=== PATIENT | female | born 1945 | race Caucasian/White ===

== ENCOUNTER 2018-11-29 06:10 | Day surgery (SDC) | payer OTHER, MEDICARE ==
[~2018-11-29] VITALS: Ht 165.1 cm; Wt 77.1 kg
[2018-11-29] MEDS ORDERED: SEVOFLURANE 15 MIN GAS INH ONE (07:30)
[2018-11-29] MEDS ORDERED: DEXAMETHASONE SOD PHOSPHATE 4 MG/ML VIAL IVP ONE (07:30)
[2018-11-29] MEDS ORDERED: NEOSTIGMINE METHYLSULFATE 1 MG/ML, 10 ML VIAL IVP ONE (07:30)
[2018-11-29] MEDS ORDERED: LR 1,000 ML IV.SOLN IV ONE (07:30)
[2018-11-29] MEDS ORDERED: PROPOFOL 200MG/ 20ML VIAL (DIPRIVAN) IV ONE (07:30)
[2018-11-29] MEDS ORDERED: HYDROCORTISONE SOD SUCC 250 MG/2 ML IVP ONE (07:30)
[2018-11-29] MEDS ORDERED: PROCHLORPERAZINE EDISYLATE 10 MG/2 ML VIAL IM ONE (07:30)
[2018-11-29] MEDS ORDERED: ONDANSETRON HCL 4 MG/2 ML VIAL IVP ONE (07:30)
[2018-11-29] MEDS ORDERED: MUPIROCIN 2% TOPICAL OINTMENT 22 GM TP ONE (07:30)
[2018-11-29] MEDS ORDERED: OXYMETAZOLINE HCL 0.05% NASAL SPRAY NS ONE (07:30)
[2018-11-29] MEDS ORDERED: fentaNYL CITRATE/PF 100 MCG/2 ML AMP IVP ONE (07:30)
[2018-11-29] MEDS ORDERED: LIDOCAINE/EPI 1% 1:100000 20 ML VIAL INJ ONE (07:30)
[2018-11-29] MEDS ORDERED: WATER FOR IRRIGATION,STERILE 1,000 ML IRRIG.SOLN IR ONE (07:30)
[2018-11-29] MEDS ORDERED: NS IRRIG SOLN 1000 ML IR ONE (07:30)
[2018-11-29] MEDS ORDERED: ROCURONIUM BROMIDE 10 MG/ML (ZEMURON) IV ONE (07:30)
[2018-11-29] MEDS ORDERED: MIDAZOLAM HCL 5 MG/5 ML VIAL IVP ONE (07:30)
[2018-11-29] MEDS ORDERED: GLYCOPYRROLATE 0.2 MG/ML VIAL IJ ONE (07:30)
[2018-11-29] MEDS ORDERED: EPINEPHrine 1 MG/ML AMP IV ONE (07:30)
[2018-11-29] MEDS ORDERED: ONDANSETRON HCL 4 MG/2 ML VIAL IVP PRN (08:30)
[2018-11-29] MEDS ORDERED: METOCLOPRAMIDE HCL 10 MG/2 ML VIAL IVP PRN (08:30)
[2018-11-29] MEDS ORDERED: fentaNYL CITRATE/PF 100 MCG/2 ML AMP IVP PRN ×2 (08:30)
[2018-11-29] MEDS ORDERED: hydrALAZINE HCL 20 MG/ML VIAL IVP ONE (10:30)
[2018-11-29] MEDS: hydrALAZINE HCL 20 MG/ML VIAL ONE ×2 (10:30→10:40)
[2018-11-29 11:52] VITALS: BP_SYST 135
== END 2018-11-29 12:40 | disposition home or self-care (01) ==
LOC: SDS 06:10 → SMU 06:10 → SDS 12:40
PROVIDERS: ATTEND Otolaryngology
DX: J34.2 Deviated nasal septum (principal); J32.9 Chronic sinusitis, unspecified; J45.909 Unspecified asthma, uncomplicated; E03.9 Hypothyroidism, unspecified; F41.9 Anxiety disorder, unspecified; E78.00 Pure hypercholesterolemia, unspecified; Z79.899 Other long term (current) drug therapy; Z98.890 Other specified postprocedural states
CPT/HCPCS: 30140; 30520; 31255; 31295; 31298; 88305; 88311; J0171; J0360; J0780; J1100; J1720; J2250; J2405; J2704; J2710; J3010; J3490; J7120

== ENCOUNTER 2019-03-19 11:43 | Inpatient (IN) | payer OTHER, MEDICARE ==
[~2019-03-19] VITALS: Ht 165.1 cm; Wt 77.1 kg
[2019-03-19 11:53] VITALS: BP_SYST 124
[2019-03-19] MEDS ORDERED: NS 1000 ML IV.SOLN IV ONE (12:30)
[2019-03-19] MEDS ORDERED: ONDANSETRON HCL 4 MG/2 ML VIAL IVP ONE (12:30)
[2019-03-19] MEDS ORDERED: KETOROLAC TROMETHAMINE 30 MG VIAL IVP ONE (12:30)
[2019-03-19] MEDS ORDERED: MONT10TA25 PO (12:33)
[2019-03-19] MEDS ORDERED: LOSA25TA18 PO (12:33)
[2019-03-19] MEDS ORDERED: SERT50TA12 PO (12:33)
[2019-03-19] MEDS ORDERED: LOVA40TA75 PO (12:33)
[2019-03-19] MEDS ORDERED: SYN50 PO (12:33)
[2019-03-19] MEDS ORDERED: BUDE6HFA INH (12:33)
[2019-03-19] MEDS ORDERED: FLO44 INH (12:33)
[2019-03-19] MEDS ORDERED: TOLT4CAP PO (12:33)
[2019-03-19 13:17] LABS: HEMATOCRIT 39.1 % (36-48); HEMOGLOBIN 13.7 g/dL (12.0-16.0); MEAN CORPUSCULAR HEMOGLOBIN 32 pg (27-31); MEAN CORPUSCULAR HGB CONC 35 % (32-36); MEAN CORPUSCULAR VOLUME 92 fL (79.0-98.0); PLATELET COUNT (AUTO) 299 K/uL (130-430); RED BLOOD CELL COUNT(AUTO) 4.25 MIL/uL (4.2-6.2); RED CELL DISTRIBUTION WIDTH 12.9 % (9.0-15.0)
[2019-03-19 13:28] LABS: ANION GAP 9 (5-15); CALCIUM 8.9 mg/dL (8.4-11.0); CHLORIDE 93 mmol/L (98-107); CREATININE 1.48 mg/dL (0.55-1.30); GLUCOSE 139 mg/dL (70-99); POTASSIUM 3.8 mmol/L (3.5-5.1); SODIUM SERUM 129 mmol/L (136-145); UREA NITROGEN, BLOOD 28 mg/dL (8-21); WHITE BLOOD COUNT (AUTO) 31.3 K/uL (4.8-10.8)
[2019-03-19 13:31] LABS: INR 1.1 (0.8-1.2); PROTHROMBIN TIME 11.2 SECS (9.5-12.5)
[2019-03-19 13:34] LABS: ALANINE AMINOTRANSFERASE 22 U/L (12-78); ASPARTATE AMINOTRANSFERASE 35 U/L (10-37); TOTAL BILIRUBIN 0.8 mg/dL (0.0-1.0)
[2019-03-19 13:51] LABS: ATYPICAL LYMPHOCYTES % 2 % (0-0); BAND % (MANUAL) 25 % (0-6); BASOPHILS % (MANUAL) 0 % (0-2); EOSINOPHILS % (MANUAL) 0 % (0-7); LYMPHOCYTES % (MANUAL) 4 % (20-46); MONOCYTES % (MANUAL) 9 % (0-11)
[2019-03-19 15:26] VITALS: BP_SYST 116
[2019-03-19] MEDS: D5/0.45 NS 1,000 ML IV SCH (15:57)
[2019-03-19] MEDS ORDERED: ACETAMINOPHEN 325 MG TABLET PO PRN (17:00)
[2019-03-19] MEDS ORDERED: HYDROcodone/ACETAMIN 10-325 MG TAB PO PRN (17:00)
[2019-03-19] MEDS ORDERED: LOVASTATIN 20 MG TABLET PO SCH (18:00)
[2019-03-19] MEDS: ATORVASTATIN 10 MG TABLET PO SCH (18:38)
[2019-03-19] MEDS: MONTELUKAST 10 MG TABLET PO SCH (18:38)
[2019-03-19 18:42] VITALS: BP_SYST 116
[2019-03-19 19:00] VITALS: BP_SYST 116
[2019-03-19] MEDS: ALBUTEROL SULFATE 0.083% 2.5 MG/3 ML VIAL.NEB INH SCH (19:25)
[2019-03-19] MEDS: BUDESONIDE 0.5 MG/2 ML AMPUL.NEB INH SCH (19:45)
[2019-03-19 20:00] VITALS: BP_SYST 116
[2019-03-19] MEDS: VANCOMYCIN HCL Non-Formulary 125 MG CAPSULE PO SCH (21:00)
[2019-03-19] MEDS ORDERED: SACCHAROMYCES BOULARDII 250 MG CAPSULE (FLORASTOR) PO SCH (21:00)
[2019-03-19] MEDS ORDERED: BUDESONIDE/FORMOTEROL 160-4.5 mCg, 6 GM INHALER INH SCH (21:00)
[2019-03-19] MEDS: LACTOBACILLUS RHAMNOSUS GG 1 CAP CAPSULE PO SCH (22:01)
[2019-03-19] MEDS: OXYBUTYNIN CHLORIDE 5 MG TABLET PO SCH (22:01)
[2019-03-19] MEDS: metroNIDAZOLE 500 MG TABLET PO SCH (22:01)
[2019-03-19] MEDS: LORazepam 2 MG/ML VIAL IVP PRN (22:10)
[2019-03-19 23:11] LABS: BILIRUBIN,URINE 2+ (NEGATIVE); BLOOD, URINE NEGATIVE (NEGATIVE); CLARITY/URINE CLEAR (CLEAR); COLOR,URINE YELLOW (YELLOW); GLUCOSE,URINE NEGATIVE (NEGATIVE); KETONES,URINE TRACE (NEGATIVE); LEUKOCYTE ESTERASE ,URINE NEGATIVE (NEGATIVE); NITRITE, URINE POSITIVE (NEGATIVE); PH,URINE 5.5 (5.0-8.0); PROTEIN URINE TRACE (NEGATIVE)
[2019-03-19 23:16] LABS: BACTERIA,URINE MODERATE /HPF (None Seen); HYALINE CASTS, URINE 0-10 /LPF (None Seen); RBC,URINE 0-3 /HPF (0-3); WBC,URINE 0-3 /HPF (0-3)
[2019-03-20] MEDS: D5/0.45 NS 1,000 ML IV SCH ×3 (00:15→18:19)
[2019-03-20] MEDS: ALBUTEROL SULFATE 0.083% 2.5 MG/3 ML VIAL.NEB INH SCH ×3 (00:48→20:30)
[2019-03-20 05:05] VITALS: BP_SYST 124
[2019-03-20] MEDS: metroNIDAZOLE 500 MG TABLET PO SCH (05:24)
[2019-03-20 06:46] LABS: HEMATOCRIT 38.1 % (36-48); HEMOGLOBIN 13.1 g/dL (12.0-16.0); MEAN CORPUSCULAR HEMOGLOBIN 32 pg (27-31); MEAN CORPUSCULAR HGB CONC 34 % (32-36); MEAN CORPUSCULAR VOLUME 93 fL (79.0-98.0); PLATELET COUNT (AUTO) 314 K/uL (130-430); RED CELL DISTRIBUTION WIDTH 13.4 % (9.0-15.0); WHITE BLOOD COUNT (AUTO) 22.8 K/uL (4.8-10.8)
[2019-03-20 06:49] LABS: ALANINE AMINOTRANSFERASE 26 U/L (12-78); ALBUMIN 1.7 g/dL (3.4-4.8); ANION GAP 4 (5-15); ASPARTATE AMINOTRANSFERASE 30 U/L (10-37); CHLORIDE 92 mmol/L (98-107); CREATININE 1.44 mg/dL (0.55-1.30); GLUCOSE 105 mg/dL (70-99); PHOSPHORUS 3.8 mg/dL (2.7-4.5); POTASSIUM 3.5 mmol/L (3.5-5.1); SODIUM SERUM 126 mmol/L (136-145); TOTAL BILIRUBIN 0.4 mg/dL (0.0-1.0); UREA NITROGEN, BLOOD 34 mg/dL (8-21)
[2019-03-20 07:14] LABS: C-REACTIVE PROTEIN QUANT 22.1 mg/dL (0-0.5)
[2019-03-20 07:19] LABS: CALCIUM 8.1 mg/dL (8.4-11.0)
[2019-03-20 08:00] VITALS: BP_SYST 124
[2019-03-20 08:22] LABS: ERYTHROCYTE SEDIMENTATION RATE 58 MM/HR (0-20)
[2019-03-20] MEDS: OXYBUTYNIN CHLORIDE 5 MG TABLET PO SCH ×3 (08:56→22:07)
[2019-03-20] MEDS: LACTOBACILLUS RHAMNOSUS GG 1 CAP CAPSULE PO SCH ×2 (08:56→22:06)
[2019-03-20] MEDS: SERTRALINE HCL 50 MG TABLET PO SCH (08:56)
[2019-03-20] MEDS: LEVOTHYROXINE SODIUM 0.05 MG TABLET PO SCH (08:56)
[2019-03-20] MEDS: LOSARTAN POTASSIUM 25 MG TABLET PO SCH (08:57)
[2019-03-20] MEDS ORDERED: VANCOMYCIN HCL ORAL SOLUTION 250 MG/5 ML, 80 ML PO SCH (08:58)
[2019-03-20] MEDS: FLOVENT INH SCH (09:00)
[2019-03-20] MEDS ORDERED: FLUTICASONE 44 mcg/ACTUATION MDI AER.W.ADAP INH SCH (09:00)
[2019-03-20] MEDS ORDERED: TOLTERODINE TARTRATE ER 2 MG CAP.ER.24H PO SCH (09:00)
[2019-03-20] MEDS: BUDESONIDE 0.5 MG/2 ML AMPUL.NEB INH SCH ×2 (09:51→20:31)
[2019-03-20 09:57] LABS: BAND % (MANUAL) 14 % (0-6); BASOPHILS % (MANUAL) 0 % (0-2); EOSINOPHILS % (MANUAL) 2 % (0-7); LYMPHOCYTES % (MANUAL) 3 % (20-46); METAMYELOCYTES % 2 % (0-0); MONOCYTES % (MANUAL) 8 % (0-11)
[2019-03-20] MEDS: VANCOMYCIN HCL ORAL SOLUTION 250 MG/5 ML, 80 ML PO SCH ×2 (11:50→15:16)
[2019-03-20 12:17] VITALS: BP_SYST 121
[2019-03-20] MEDS: metroNIDAZOLE 500 mg/NS 100 ML IV SCH ×2 (15:16→22:06)
[2019-03-20 16:57] VITALS: BP_SYST 119
[2019-03-20] MEDS: ATORVASTATIN 10 MG TABLET PO SCH (18:16)
[2019-03-20] MEDS: MONTELUKAST 10 MG TABLET PO SCH (18:16)
[2019-03-20] MEDS: VANCOMYCIN HCL 250 MG CAPSULE PO SCH ×2 (18:16→22:07)
[2019-03-21 00:27] VITALS: BP_SYST 129
[2019-03-21] MEDS: ALBUTEROL SULFATE 0.083% 2.5 MG/3 ML VIAL.NEB INH SCH ×4 (01:00→19:00)
[2019-03-21 06:12] LABS: BASOPHILS # (AUTO) 0.1 K/uL (0.0-0.2); BASOPHILS % (AUTO) 0.5 % (0.0-2.0); EOSINOPHILS # (AUTO) 0.2 K/uL (0.0-0.4); EOSINOPHILS % (AUTO) 1.6 % (0.0-4.0); HEMOGLOBIN 11.9 g/dL (12.0-16.0); LYMPHOCYTES # (AUTO) 0.8 K/uL (1.0-5.5); LYMPHOCYTES % (AUTO) 6.6 % (20.5-51.5); MEAN CORPUSCULAR HEMOGLOBIN 33 pg (27-31); MEAN CORPUSCULAR HGB CONC 35 % (32-36); MEAN CORPUSCULAR VOLUME 94 fL (79.0-98.0); NEUTROPHILS # (AUTO) 10.4 K/uL (1.8-7.7); NEUTROPHILS % (AUTO) 83.3 % (40.0-70.0); PLATELET COUNT (AUTO) 297 K/uL (130-430); RED BLOOD CELL COUNT(AUTO) 3.62 MIL/uL (4.2-6.2); RED CELL DISTRIBUTION WIDTH 13.3 % (9.0-15.0); WHITE BLOOD COUNT (AUTO) 12.5 K/uL (4.8-10.8)
[2019-03-21] MEDS: metroNIDAZOLE 500 mg/NS 100 ML IV SCH ×3 (06:49→21:11)
[2019-03-21] MEDS: LEVOTHYROXINE SODIUM 0.05 MG TABLET PO SCH (06:50)
[2019-03-21] MEDS: BUDESONIDE 0.5 MG/2 ML AMPUL.NEB INH SCH ×2 (07:17→19:00)
[2019-03-21 07:38] LABS: ALANINE AMINOTRANSFERASE 22 U/L (12-78); ALBUMIN 1.6 g/dL (3.4-4.8); ANION GAP 3 (5-15); ASPARTATE AMINOTRANSFERASE 28 U/L (10-37); CALCIUM 7.5 mg/dL (8.4-11.0); CHLORIDE 98 mmol/L (98-107); CREATININE 1.08 mg/dL (0.55-1.30); GLUCOSE 113 mg/dL (70-99); PHOSPHORUS 3.4 mg/dL (2.7-4.5); POTASSIUM 3.9 mmol/L (3.5-5.1); SODIUM SERUM 131 mmol/L (136-145); TOTAL BILIRUBIN 0.4 mg/dL (0.0-1.0); UREA NITROGEN, BLOOD 32 mg/dL (8-21)
[2019-03-21 07:54] LABS: ERYTHROCYTE SEDIMENTATION RATE 39 MM/HR (0-20)
[2019-03-21 08:00] VITALS: BP_SYST 132
[2019-03-21 08:53] LABS: C-REACTIVE PROTEIN QUANT 11.6 mg/dL (0-0.5)
[2019-03-21] MEDS: FLOVENT INH SCH (09:00)
[2019-03-21] MEDS: OXYBUTYNIN CHLORIDE 5 MG TABLET PO SCH ×3 (10:03→21:11)
[2019-03-21] MEDS: VANCOMYCIN HCL 250 MG CAPSULE PO SCH ×4 (10:03→21:11)
[2019-03-21] MEDS: LACTOBACILLUS RHAMNOSUS GG 1 CAP CAPSULE PO SCH ×2 (10:03→21:11)
[2019-03-21] MEDS: LOSARTAN POTASSIUM 25 MG TABLET PO SCH (10:04)
[2019-03-21] MEDS: SERTRALINE HCL 50 MG TABLET PO SCH (10:04)
[2019-03-21] MEDS: D5/0.45 NS 1,000 ML IV SCH ×2 (11:32→21:16)
[2019-03-21 12:15] VITALS: BP_SYST 111
[2019-03-21 16:35] VITALS: BP_SYST 119
[2019-03-21] MEDS: MONTELUKAST 10 MG TABLET PO SCH (17:16)
[2019-03-21] MEDS: ATORVASTATIN 10 MG TABLET PO SCH (17:16)
[2019-03-21 20:00] VITALS: BP_SYST 118
[2019-03-22 00:30] VITALS: BP_SYST 111
[2019-03-22] MEDS: ALBUTEROL SULFATE 0.083% 2.5 MG/3 ML VIAL.NEB INH SCH ×3 (01:00→13:51)
[2019-03-22] MEDS: D5/0.45 NS 1,000 ML IV SCH ×3 (02:15→21:46)
[2019-03-22 06:12] LABS: BASOPHILS % (AUTO) 0.5 % (0.0-2.0); EOSINOPHILS # (AUTO) 0.2 K/uL (0.0-0.4); EOSINOPHILS % (AUTO) 1.9 % (0.0-4.0); LYMPHOCYTES # (AUTO) 0.9 K/uL (1.0-5.5); LYMPHOCYTES % (AUTO) 10.5 % (20.5-51.5); MEAN CORPUSCULAR HEMOGLOBIN 32 pg (27-31); MEAN CORPUSCULAR HGB CONC 34 % (32-36); MEAN CORPUSCULAR VOLUME 94 fL (79.0-98.0); MONOCYTES # (AUTO) 1.2 K/uL (0.0-1.0); MONOCYTES % (AUTO) 14.2 % (1.7-9.3); NEUTROPHILS # (AUTO) 5.9 K/uL (1.8-7.7); NEUTROPHILS % (AUTO) 72.9 % (40.0-70.0); PLATELET COUNT (AUTO) 278 K/uL (130-430); RED BLOOD CELL COUNT(AUTO) 3.71 MIL/uL (4.2-6.2); RED CELL DISTRIBUTION WIDTH 13.1 % (9.0-15.0)
[2019-03-22 06:13] LABS: ANION GAP 3 (5-15); C-REACTIVE PROTEIN QUANT 5.6 mg/dL (0-0.5); CHLORIDE 101 mmol/L (98-107); CREATININE 0.84 mg/dL (0.55-1.30); GLUCOSE 104 mg/dL (70-99); POTASSIUM 3.4 mmol/L (3.5-5.1); SODIUM SERUM 132 mmol/L (136-145); UREA NITROGEN, BLOOD 14 mg/dL (8-21)
[2019-03-22] MEDS: metroNIDAZOLE 500 mg/NS 100 ML IV SCH ×3 (06:25→21:45)
[2019-03-22] MEDS: LEVOTHYROXINE SODIUM 0.05 MG TABLET PO SCH (06:25)
[2019-03-22 06:36] LABS: CALCIUM 7.3 mg/dL (8.4-11.0)
[2019-03-22 07:15] LABS: WHITE BLOOD COUNT (AUTO) 8.1 K/uL (4.8-10.8)
[2019-03-22] MEDS: BUDESONIDE 0.5 MG/2 ML AMPUL.NEB INH SCH (07:50)
[2019-03-22 08:28] LABS: ERYTHROCYTE SEDIMENTATION RATE 26 MM/HR (0-20)
[2019-03-22] MEDS: FLOVENT INH SCH (09:00)
[2019-03-22] MEDS: VANCOMYCIN HCL 250 MG CAPSULE PO SCH ×4 (09:10→21:45)
[2019-03-22] MEDS: SERTRALINE HCL 50 MG TABLET PO SCH (09:10)
[2019-03-22] MEDS: LACTOBACILLUS RHAMNOSUS GG 1 CAP CAPSULE PO SCH ×2 (09:10→21:45)
[2019-03-22] MEDS: OXYBUTYNIN CHLORIDE 5 MG TABLET PO SCH ×3 (09:10→21:45)
[2019-03-22] MEDS: CHOLESTYRAMINE/SUCROSE 4 GM/PACKET PO SCH ×2 (09:11→21:45)
[2019-03-22 09:20] VITALS: BP_SYST 155
[2019-03-22] MEDS: LOSARTAN POTASSIUM 25 MG TABLET PO SCH (09:20)
[2019-03-22] MEDS ORDERED: POTASSIUM CHLORIDE 20 MEQ TAB.PRT.SR PO ONE (09:45)
[2019-03-22 12:28] VITALS: BP_SYST 144
[2019-03-22 14:32] VITALS: BP_SYST 144
[2019-03-22 16:24] VITALS: BP_SYST 126
[2019-03-22] MEDS: ATORVASTATIN 10 MG TABLET PO SCH (17:52)
[2019-03-22] MEDS: MONTELUKAST 10 MG TABLET PO SCH (17:52)
[2019-03-22 20:51] VITALS: BP_SYST 123
[2019-03-23 01:23] VITALS: BP_SYST 141
[2019-03-23] MEDS: metroNIDAZOLE 500 mg/NS 100 ML IV SCH ×3 (06:26→22:15)
[2019-03-23] MEDS: LEVOTHYROXINE SODIUM 0.05 MG TABLET PO SCH (06:26)
[2019-03-23 06:50] LABS: ANION GAP 7 (5-15); CHLORIDE 103 mmol/L (98-107); CREATININE 0.67 mg/dL (0.55-1.30); GLUCOSE 99 mg/dL (70-99); POTASSIUM 3.5 mmol/L (3.5-5.1); SODIUM SERUM 134 mmol/L (136-145); UREA NITROGEN, BLOOD 5 mg/dL (8-21)
[2019-03-23 07:22] LABS: BASOPHILS % (AUTO) 0.5 % (0.0-2.0); EOSINOPHILS # (AUTO) 0.2 K/uL (0.0-0.4); EOSINOPHILS % (AUTO) 1.7 % (0.0-4.0); HEMATOCRIT 37.6 % (36-48); HEMOGLOBIN 13.1 g/dL (12.0-16.0); LYMPHOCYTES # (AUTO) 1.1 K/uL (1.0-5.5); LYMPHOCYTES % (AUTO) 12.1 % (20.5-51.5); MEAN CORPUSCULAR HEMOGLOBIN 33 pg (27-31); MEAN CORPUSCULAR HGB CONC 35 % (32-36); MEAN CORPUSCULAR VOLUME 94 fL (79.0-98.0); MONOCYTES # (AUTO) 1.2 K/uL (0.0-1.0); MONOCYTES % (AUTO) 13.2 % (1.7-9.3); NEUTROPHILS # (AUTO) 6.6 K/uL (1.8-7.7); NEUTROPHILS % (AUTO) 72.5 % (40.0-70.0); PLATELET COUNT (AUTO) 295 K/uL (130-430); RED BLOOD CELL COUNT(AUTO) 4.02 MIL/uL (4.2-6.2); RED CELL DISTRIBUTION WIDTH 13.2 % (9.0-15.0); WHITE BLOOD COUNT (AUTO) 9.1 K/uL (4.8-10.8)
[2019-03-23] MEDS: BUDESONIDE 0.5 MG/2 ML AMPUL.NEB INH SCH ×2 (07:25→19:00)
[2019-03-23] MEDS: ALBUTEROL SULFATE 0.083% 2.5 MG/3 ML VIAL.NEB INH SCH ×3 (07:25→19:52)
[2019-03-23 07:26] LABS: CALCIUM 7.7 mg/dL (8.4-11.0)
[2019-03-23 07:52] VITALS: BP_SYST 147
[2019-03-23] MEDS: CHOLESTYRAMINE/SUCROSE 4 GM/PACKET PO SCH ×2 (08:38→22:15)
[2019-03-23] MEDS: SERTRALINE HCL 50 MG TABLET PO SCH (08:39)
[2019-03-23] MEDS: LOSARTAN POTASSIUM 25 MG TABLET PO SCH (08:39)
[2019-03-23] MEDS: LACTOBACILLUS RHAMNOSUS GG 1 CAP CAPSULE PO SCH ×2 (08:39→22:15)
[2019-03-23] MEDS: OXYBUTYNIN CHLORIDE 5 MG TABLET PO SCH ×3 (08:39→22:15)
[2019-03-23] MEDS: VANCOMYCIN HCL 250 MG CAPSULE PO SCH ×4 (08:39→22:15)
[2019-03-23] MEDS: FLOVENT INH SCH (08:40)
[2019-03-23] MEDS: D5/0.45 NS 1,000 ML IV SCH ×3 (08:41→20:20)
[2019-03-23 09:45] LABS: ERYTHROCYTE SEDIMENTATION RATE 22 MM/HR (0-20)
[2019-03-23 12:00] VITALS: BP_SYST 124
[2019-03-23 16:42] VITALS: BP_SYST 142
[2019-03-23] MEDS: ATORVASTATIN 10 MG TABLET PO SCH (17:31)
[2019-03-23] MEDS: MONTELUKAST 10 MG TABLET PO SCH (17:31)
[2019-03-23 20:00] VITALS: BP_SYST 145
[2019-03-23] MEDS: ONDANSETRON HCL 4 MG/2 ML VIAL IVP PRN (20:12)
[2019-03-23] MEDS ORDERED: PANTOPRAZOLE SODIUM 40 MG/VIAL (PROTONIX) IVP ONE (21:58)
[2019-03-23] MEDS: LORazepam 2 MG/ML VIAL IVP PRN (22:21)
[2019-03-24 00:34] VITALS: BP_SYST 127
[2019-03-24] MEDS: ALBUTEROL SULFATE 0.083% 2.5 MG/3 ML VIAL.NEB INH SCH ×4 (01:00→19:00)
[2019-03-24] MEDS: LEVOTHYROXINE SODIUM 0.05 MG TABLET PO SCH (06:18)
[2019-03-24] MEDS: metroNIDAZOLE 500 mg/NS 100 ML IV SCH ×3 (06:19→22:28)
[2019-03-24] MEDS: BUDESONIDE 0.5 MG/2 ML AMPUL.NEB INH SCH ×2 (07:24→19:00)
[2019-03-24 07:29] LABS: BASOPHILS # (AUTO) 0.1 K/uL (0.0-0.2); BASOPHILS % (AUTO) 0.9 % (0.0-2.0); EOSINOPHILS # (AUTO) 0.3 K/uL (0.0-0.4); EOSINOPHILS % (AUTO) 3.1 % (0.0-4.0); HEMATOCRIT 38.3 % (36-48); HEMOGLOBIN 13.4 g/dL (12.0-16.0); LYMPHOCYTES # (AUTO) 1.2 K/uL (1.0-5.5); LYMPHOCYTES % (AUTO) 12.4 % (20.5-51.5); MEAN CORPUSCULAR HEMOGLOBIN 32 pg (27-31); MEAN CORPUSCULAR HGB CONC 35 % (32-36); MEAN CORPUSCULAR VOLUME 93 fL (79.0-98.0); MONOCYTES # (AUTO) 1.3 K/uL (0.0-1.0); MONOCYTES % (AUTO) 13.8 % (1.7-9.3); NEUTROPHILS # (AUTO) 6.8 K/uL (1.8-7.7); NEUTROPHILS % (AUTO) 69.8 % (40.0-70.0); PLATELET COUNT (AUTO) 291 K/uL (130-430); RED BLOOD CELL COUNT(AUTO) 4.13 MIL/uL (4.2-6.2); RED CELL DISTRIBUTION WIDTH 13.2 % (9.0-15.0); WHITE BLOOD COUNT (AUTO) 9.8 K/uL (4.8-10.8)
[2019-03-24 08:08] LABS: ALANINE AMINOTRANSFERASE 38 U/L (12-78); ALBUMIN 1.5 g/dL (3.4-4.8); ANION GAP 3 (5-15); ASPARTATE AMINOTRANSFERASE 54 U/L (10-37); C-REACTIVE PROTEIN QUANT 2.7 mg/dL (0-0.5); CHLORIDE 102 mmol/L (98-107); CREATININE 0.66 mg/dL (0.55-1.30); GLUCOSE 103 mg/dL (70-99); POTASSIUM 3.4 mmol/L (3.5-5.1); SODIUM SERUM 131 mmol/L (136-145); TOTAL BILIRUBIN 0.3 mg/dL (0.0-1.0); UREA NITROGEN, BLOOD 2 mg/dL (8-21)
[2019-03-24 08:20] VITALS: BP_SYST 146
[2019-03-24] MEDS: FLOVENT INH SCH (08:28)
[2019-03-24 08:33] LABS: CALCIUM 7.1 mg/dL (8.4-11.0)
[2019-03-24 08:41] LABS: ERYTHROCYTE SEDIMENTATION RATE 14 MM/HR (0-20)
[2019-03-24] MEDS: OXYBUTYNIN CHLORIDE 5 MG TABLET PO SCH ×3 (08:44→22:28)
[2019-03-24] MEDS: CHOLESTYRAMINE/SUCROSE 4 GM/PACKET PO SCH ×2 (08:44→22:28)
[2019-03-24] MEDS: VANCOMYCIN HCL 250 MG CAPSULE PO SCH ×4 (08:44→22:28)
[2019-03-24] MEDS: LACTOBACILLUS RHAMNOSUS GG 1 CAP CAPSULE PO SCH ×2 (08:44→22:29)
[2019-03-24] MEDS: SERTRALINE HCL 50 MG TABLET PO SCH (08:45)
[2019-03-24] MEDS: D5/0.45 NS 1,000 ML IV SCH ×2 (08:45→22:25)
[2019-03-24] MEDS: LOSARTAN POTASSIUM 25 MG TABLET PO SCH (08:48)
[2019-03-24] MEDS ORDERED: PANTOPRAZOLE SODIUM 40 MG/VIAL (PROTONIX) IVP SCH (09:00)
[2019-03-24] MEDS ORDERED: FAMOTIDINE 20 MG TABLET PO ONE (11:15)
[2019-03-24 12:45] VITALS: BP_SYST 144
[2019-03-24 16:50] VITALS: BP_SYST 130
[2019-03-24] MEDS: ATORVASTATIN 10 MG TABLET PO SCH (17:17)
[2019-03-24] MEDS: MONTELUKAST 10 MG TABLET PO SCH (17:17)
[2019-03-24 20:00] VITALS: BP_SYST 147
[2019-03-25] MEDS: ALBUTEROL SULFATE 0.083% 2.5 MG/3 ML VIAL.NEB INH SCH ×4 (00:57→20:09)
[2019-03-25 01:17] VITALS: BP_SYST 132
[2019-03-25] MEDS: metroNIDAZOLE 500 mg/NS 100 ML IV SCH ×3 (06:54→21:44)
[2019-03-25] MEDS: LEVOTHYROXINE SODIUM 0.05 MG TABLET PO SCH (07:10)
[2019-03-25] MEDS: HYDROcodone/ACETAMIN 5-325 MG TAB (NORCO/ VICODIN) PO PRN (07:10)
[2019-03-25] MEDS: BUDESONIDE 0.5 MG/2 ML AMPUL.NEB INH SCH ×2 (07:15→20:22)
[2019-03-25 08:00] LABS: BASOPHILS # (AUTO) 0.1 K/uL (0.0-0.2); BASOPHILS % (AUTO) 0.5 % (0.0-2.0); EOSINOPHILS # (AUTO) 0.6 K/uL (0.0-0.4); EOSINOPHILS % (AUTO) 4.9 % (0.0-4.0); HEMATOCRIT 40.6 % (36-48); HEMOGLOBIN 13.8 g/dL (12.0-16.0); LYMPHOCYTES # (AUTO) 1.2 K/uL (1.0-5.5); LYMPHOCYTES % (AUTO) 10.5 % (20.5-51.5); MEAN CORPUSCULAR HEMOGLOBIN 32 pg (27-31); MEAN CORPUSCULAR HGB CONC 34 % (32-36); MEAN CORPUSCULAR VOLUME 93 fL (79.0-98.0); MONOCYTES # (AUTO) 1.3 K/uL (0.0-1.0); MONOCYTES % (AUTO) 11.4 % (1.7-9.3); NEUTROPHILS # (AUTO) 8.3 K/uL (1.8-7.7); NEUTROPHILS % (AUTO) 72.7 % (40.0-70.0); PLATELET COUNT (AUTO) 305 K/uL (130-430); RED BLOOD CELL COUNT(AUTO) 4.39 MIL/uL (4.2-6.2); RED CELL DISTRIBUTION WIDTH 13.4 % (9.0-15.0); WHITE BLOOD COUNT (AUTO) 11.4 K/uL (4.8-10.8)
[2019-03-25 08:22] LABS: ANION GAP 4 (5-15); C-REACTIVE PROTEIN QUANT 2.1 mg/dL (0-0.5); CHLORIDE 103 mmol/L (98-107); CREATININE 0.58 mg/dL (0.55-1.30); GLUCOSE 106 mg/dL (70-99); POTASSIUM 3.5 mmol/L (3.5-5.1); SODIUM SERUM 133 mmol/L (136-145); UREA NITROGEN, BLOOD 4 mg/dL (8-21)
[2019-03-25 08:23] VITALS: BP_SYST 165
[2019-03-25 08:45] LABS: CALCIUM 7.6 mg/dL (8.4-11.0)
[2019-03-25] MEDS ORDERED: cloNIDine HCL 0.1 MG TABLET PO PRN (09:00)
[2019-03-25] MEDS: FLOVENT INH SCH (09:00)
[2019-03-25 09:04] LABS: ERYTHROCYTE SEDIMENTATION RATE 16 MM/HR (0-20)
[2019-03-25] MEDS: OXYBUTYNIN CHLORIDE 5 MG TABLET PO SCH ×3 (09:27→22:26)
[2019-03-25] MEDS: VANCOMYCIN HCL 250 MG CAPSULE PO SCH ×4 (09:27→21:45)
[2019-03-25] MEDS: LOSARTAN POTASSIUM 25 MG TABLET PO SCH (09:28)
[2019-03-25] MEDS: CHOLESTYRAMINE/SUCROSE 4 GM/PACKET PO SCH ×2 (09:28→21:45)
[2019-03-25] MEDS: SERTRALINE HCL 50 MG TABLET PO SCH (09:28)
[2019-03-25] MEDS: LACTOBACILLUS RHAMNOSUS GG 1 CAP CAPSULE PO SCH ×2 (09:28→21:45)
[2019-03-25] MEDS: FAMOTIDINE 20 MG TABLET PO SCH (09:28)
[2019-03-25] MEDS: D5/0.45 NS 1,000 ML IV SCH ×2 (10:38→21:50)
[2019-03-25 12:45] VITALS: BP_SYST 154
[2019-03-25] MEDS ORDERED: Cholestyramine/Sucrose PO (14:04)
[2019-03-25] MEDS ORDERED: VANC250C11 PO (14:04)
[2019-03-25] MEDS: LORazepam 2 MG/ML VIAL IVP PRN (15:19)
[2019-03-25 16:45] VITALS: BP_SYST 133
[2019-03-25] MEDS: MONTELUKAST 10 MG TABLET PO SCH (18:09)
[2019-03-25] MEDS: ATORVASTATIN 10 MG TABLET PO SCH (18:09)
[2019-03-25 20:00] VITALS: BP_SYST 120
[2019-03-26 00:39] VITALS: BP_SYST 142
[2019-03-26] MEDS: ALBUTEROL SULFATE 0.083% 2.5 MG/3 ML VIAL.NEB INH SCH ×4 (00:54→20:07)
[2019-03-26] MEDS: ONDANSETRON HCL 4 MG/2 ML VIAL IVP PRN ×3 (03:28→16:57)
[2019-03-26] MEDS: metroNIDAZOLE 500 mg/NS 100 ML IV SCH ×3 (06:17→22:40)
[2019-03-26] MEDS: LEVOTHYROXINE SODIUM 0.05 MG TABLET PO SCH (06:55)
[2019-03-26] MEDS: BUDESONIDE 0.5 MG/2 ML AMPUL.NEB INH SCH ×2 (07:57→20:07)
[2019-03-26 08:18] VITALS: BP_SYST 161
[2019-03-26] MEDS: FLOVENT INH SCH (09:00)
[2019-03-26] MEDS: CHOLESTYRAMINE/SUCROSE 4 GM/PACKET PO SCH ×2 (09:06→21:40)
[2019-03-26] MEDS: LOSARTAN POTASSIUM 25 MG TABLET PO SCH (09:08)
[2019-03-26] MEDS: LACTOBACILLUS RHAMNOSUS GG 1 CAP CAPSULE PO SCH ×2 (09:08→21:40)
[2019-03-26] MEDS: SERTRALINE HCL 50 MG TABLET PO SCH (09:08)
[2019-03-26] MEDS: FAMOTIDINE 20 MG TABLET PO SCH (09:08)
[2019-03-26] MEDS: VANCOMYCIN HCL 250 MG CAPSULE PO SCH ×4 (09:08→21:40)
[2019-03-26] MEDS: OXYBUTYNIN CHLORIDE 5 MG TABLET PO SCH ×3 (09:09→21:41)
[2019-03-26] MEDS: D5/0.45 NS 1,000 ML IV SCH ×2 (09:10→16:15)
[2019-03-26] MEDS ORDERED: DOXYCYCLINE HYCLATE 100 MG CAPSULE PO ONE (10:45)
[2019-03-26 11:14] VITALS: BP_SYST 157
[2019-03-26] MEDS: HYDROcodone/ACETAMIN 5-325 MG TAB (NORCO/ VICODIN) PO PRN (16:56)
[2019-03-26 17:11] VITALS: BP_SYST 144
[2019-03-26] MEDS: MONTELUKAST 10 MG TABLET PO SCH (18:23)
[2019-03-26] MEDS: ATORVASTATIN 10 MG TABLET PO SCH (18:23)
[2019-03-26 19:00] VITALS: BP_SYST 140
[2019-03-26 20:00] VITALS: BP_SYST 140
[2019-03-26] MEDS: DOXYCYCLINE HYCLATE 100 MG CAPSULE PO SCH (21:41)
[2019-03-27 00:29] VITALS: BP_SYST 144
[2019-03-27] MEDS: ALBUTEROL SULFATE 0.083% 2.5 MG/3 ML VIAL.NEB INH SCH ×4 (00:55→19:55)
[2019-03-27] MEDS: D5/0.45 NS 1,000 ML IV SCH ×3 (00:56→22:06)
[2019-03-27] MEDS: BUDESONIDE 0.5 MG/2 ML AMPUL.NEB INH SCH ×2 (07:37→19:55)
[2019-03-27] MEDS: LEVOTHYROXINE SODIUM 0.05 MG TABLET PO SCH (07:43)
[2019-03-27 07:50] VITALS: BP_SYST 150
[2019-03-27] MEDS: FLOVENT INH SCH (09:00)
[2019-03-27] MEDS: LACTOBACILLUS RHAMNOSUS GG 1 CAP CAPSULE PO SCH ×2 (09:56→22:06)
[2019-03-27] MEDS: OXYBUTYNIN CHLORIDE 5 MG TABLET PO SCH ×3 (09:56→22:06)
[2019-03-27] MEDS: LOSARTAN POTASSIUM 25 MG TABLET PO SCH (09:56)
[2019-03-27] MEDS: SERTRALINE HCL 50 MG TABLET PO SCH (09:56)
[2019-03-27] MEDS: CHOLESTYRAMINE/SUCROSE 4 GM/PACKET PO SCH ×2 (09:56→21:00)
[2019-03-27] MEDS: VANCOMYCIN HCL 250 MG CAPSULE PO SCH ×3 (09:57→22:07)
[2019-03-27] MEDS: DOXYCYCLINE HYCLATE 100 MG CAPSULE PO SCH ×2 (09:57→22:06)
[2019-03-27] MEDS: FAMOTIDINE 20 MG TABLET PO SCH (09:57)
[2019-03-27] MEDS ORDERED: FIDAXOMICIN 200 MG TABLET PO SCH (11:15)
[2019-03-27 11:51] VITALS: BP_SYST 158
[2019-03-27 18:01] VITALS: BP_SYST 137
[2019-03-27] MEDS: ATORVASTATIN 10 MG TABLET PO SCH (18:15)
[2019-03-27] MEDS: MONTELUKAST 10 MG TABLET PO SCH (18:15)
[2019-03-27 20:15] VITALS: BP_SYST 139
[2019-03-28] MEDS: HYDROcodone/ACETAMIN 5-325 MG TAB (NORCO/ VICODIN) PO PRN (01:10)
[2019-03-28 01:30] VITALS: BP_SYST 154
[2019-03-28] MEDS: ALBUTEROL SULFATE 0.083% 2.5 MG/3 ML VIAL.NEB INH SCH ×4 (01:37→19:55)
[2019-03-28] MEDS: LEVOTHYROXINE SODIUM 0.05 MG TABLET PO SCH (06:16)
[2019-03-28 07:09] LABS: BASOPHILS # (AUTO) 0.1 K/uL (0.0-0.2); BASOPHILS % (AUTO) 0.4 % (0.0-2.0); EOSINOPHILS # (AUTO) 0.5 K/uL (0.0-0.4); EOSINOPHILS % (AUTO) 4.3 % (0.0-4.0); HEMATOCRIT 35.3 % (36-48); HEMOGLOBIN 12.5 g/dL (12.0-16.0); LYMPHOCYTES # (AUTO) 1.8 K/uL (1.0-5.5); LYMPHOCYTES % (AUTO) 14.2 % (20.5-51.5); MEAN CORPUSCULAR HEMOGLOBIN 32 pg (27-31); MEAN CORPUSCULAR HGB CONC 35 % (32-36); MEAN CORPUSCULAR VOLUME 91 fL (79.0-98.0); MONOCYTES # (AUTO) 1.2 K/uL (0.0-1.0); MONOCYTES % (AUTO) 9.3 % (1.7-9.3); NEUTROPHILS % (AUTO) 71.8 % (40.0-70.0); PLATELET COUNT (AUTO) 310 K/uL (130-430); RED BLOOD CELL COUNT(AUTO) 3.88 MIL/uL (4.2-6.2); RED CELL DISTRIBUTION WIDTH 13.3 % (9.0-15.0); WHITE BLOOD COUNT (AUTO) 12.5 K/uL (4.8-10.8)
[2019-03-28] MEDS: BUDESONIDE 0.5 MG/2 ML AMPUL.NEB INH SCH ×2 (07:26→19:55)
[2019-03-28 07:55] VITALS: BP_SYST 130
[2019-03-28 08:10] LABS: ALANINE AMINOTRANSFERASE 22 U/L (12-78); ALBUMIN 1.8 g/dL (3.4-4.8); ANION GAP 9 (5-15); ASPARTATE AMINOTRANSFERASE 26 U/L (10-37); CALCIUM 7.3 mg/dL (8.4-11.0); CHLORIDE 108 mmol/L (98-107); CREATININE 0.57 mg/dL (0.55-1.30); GLUCOSE 108 mg/dL (70-99); SODIUM SERUM 139 mmol/L (136-145); TOTAL BILIRUBIN 0.3 mg/dL (0.0-1.0); UREA NITROGEN, BLOOD 2 mg/dL (8-21)
[2019-03-28 08:11] LABS: POTASSIUM 2.9 mmol/L (3.5-5.1)
[2019-03-28 08:12] LABS: C-REACTIVE PROTEIN QUANT 0.7 mg/dL (0-0.5)
[2019-03-28 08:36] LABS: ERYTHROCYTE SEDIMENTATION RATE 15 MM/HR (0-20)
[2019-03-28] MEDS: LACTOBACILLUS RHAMNOSUS GG 1 CAP CAPSULE PO SCH ×2 (08:50→21:20)
[2019-03-28] MEDS: LOSARTAN POTASSIUM 25 MG TABLET PO SCH (08:50)
[2019-03-28] MEDS: VANCOMYCIN HCL 250 MG CAPSULE PO SCH (08:50)
[2019-03-28] MEDS: OXYBUTYNIN CHLORIDE 5 MG TABLET PO SCH ×3 (08:50→21:20)
[2019-03-28] MEDS: SERTRALINE HCL 50 MG TABLET PO SCH (08:50)
[2019-03-28] MEDS: CHOLESTYRAMINE/SUCROSE 4 GM/PACKET PO SCH ×2 (08:50→21:00)
[2019-03-28] MEDS: DOXYCYCLINE HYCLATE 100 MG CAPSULE PO SCH ×2 (08:50→21:20)
[2019-03-28] MEDS: FAMOTIDINE 20 MG TABLET PO SCH (08:51)
[2019-03-28] MEDS: D5/0.45 NS 1,000 ML IV SCH ×2 (08:57→21:28)
[2019-03-28] MEDS: FLOVENT INH SCH (08:58)
[2019-03-28] MEDS ORDERED: FIDAXOMICIN 200 MG TABLET PO SCH (09:00)
[2019-03-28] MEDS ORDERED: POTASSIUM CHLORIDE 40 MEQ in NS 250 ML IV ONE (09:30)
[2019-03-28] MEDS ORDERED: FIDAXOMICIN 200 MG TABLET PO ONE (10:30)
[2019-03-28 12:52] VITALS: BP_SYST 141
[2019-03-28] MEDS ORDERED: ALBUTEROL SULFATE 0.083% 2.5 MG/3 ML VIAL.NEB INH ONE (14:30)
[2019-03-28 16:54] VITALS: BP_SYST 137
[2019-03-28] MEDS: ATORVASTATIN 10 MG TABLET PO SCH (17:58)
[2019-03-28] MEDS: MONTELUKAST 10 MG TABLET PO SCH (17:58)
[2019-03-28 21:20] VITALS: BP_SYST 150
[2019-03-28] MEDS: FIDAXOMICIN 200 MG TABLET PO SCH (21:20)
[2019-03-29 00:15] VITALS: BP_SYST 144
[2019-03-29] MEDS: ALBUTEROL SULFATE 0.083% 2.5 MG/3 ML VIAL.NEB INH SCH ×3 (01:17→19:05)
[2019-03-29] MEDS: LEVOTHYROXINE SODIUM 0.05 MG TABLET PO SCH (06:49)
[2019-03-29] MEDS: BUDESONIDE 0.5 MG/2 ML AMPUL.NEB INH SCH ×2 (07:30→19:16)
[2019-03-29 08:40] VITALS: BP_SYST 148
[2019-03-29] MEDS: FLOVENT INH SCH (09:00)
[2019-03-29 09:04] LABS: BASOPHILS # (AUTO) 0.1 K/uL (0.0-0.2); BASOPHILS % (AUTO) 0.5 % (0.0-2.0); EOSINOPHILS # (AUTO) 0.7 K/uL (0.0-0.4); EOSINOPHILS % (AUTO) 5.5 % (0.0-4.0); HEMATOCRIT 36.9 % (36-48); HEMOGLOBIN 12.8 g/dL (12.0-16.0); LYMPHOCYTES # (AUTO) 1.7 K/uL (1.0-5.5); LYMPHOCYTES % (AUTO) 14.1 % (20.5-51.5); MEAN CORPUSCULAR HEMOGLOBIN 32 pg (27-31); MEAN CORPUSCULAR HGB CONC 35 % (32-36); MEAN CORPUSCULAR VOLUME 92 fL (79.0-98.0); MONOCYTES % (AUTO) 8.5 % (1.7-9.3); NEUTROPHILS # (AUTO) 8.7 K/uL (1.8-7.7); NEUTROPHILS % (AUTO) 71.4 % (40.0-70.0); PLATELET COUNT (AUTO) 325 K/uL (130-430); RED BLOOD CELL COUNT(AUTO) 4.03 MIL/uL (4.2-6.2); RED CELL DISTRIBUTION WIDTH 13.5 % (9.0-15.0); WHITE BLOOD COUNT (AUTO) 12.2 K/uL (4.8-10.8)
[2019-03-29 09:28] LABS: ANION GAP 7 (5-15); CALCIUM 7.7 mg/dL (8.4-11.0); CHLORIDE 109 mmol/L (98-107); CREATININE 0.57 mg/dL (0.55-1.30); GLUCOSE 92 mg/dL (70-99); SODIUM SERUM 139 mmol/L (136-145); UREA NITROGEN, BLOOD 2 mg/dL (8-21)
[2019-03-29 09:37] LABS: POTASSIUM 2.9 mmol/L (3.5-5.1)
[2019-03-29 09:53] LABS: C-REACTIVE PROTEIN QUANT 0.3 mg/dL (0-0.5)
[2019-03-29 09:59] LABS: ERYTHROCYTE SEDIMENTATION RATE 16 MM/HR (0-20)
[2019-03-29] MEDS: D5/0.45 NS 1,000 ML IV SCH ×3 (10:09→21:05)
[2019-03-29] MEDS: LACTOBACILLUS RHAMNOSUS GG 1 CAP CAPSULE PO SCH ×2 (10:11→21:04)
[2019-03-29] MEDS: DOXYCYCLINE HYCLATE 100 MG CAPSULE PO SCH (10:11)
[2019-03-29] MEDS: CHOLESTYRAMINE/SUCROSE 4 GM/PACKET PO SCH ×2 (10:11→21:00)
[2019-03-29] MEDS: SERTRALINE HCL 50 MG TABLET PO SCH (10:12)
[2019-03-29] MEDS: FIDAXOMICIN 200 MG TABLET PO SCH ×2 (10:12→21:04)
[2019-03-29] MEDS: LOSARTAN POTASSIUM 25 MG TABLET PO SCH (10:12)
[2019-03-29] MEDS: FAMOTIDINE 20 MG TABLET PO SCH (10:12)
[2019-03-29] MEDS ORDERED: POTASSIUM CHLORIDE 40 MEQ in NS 250 ML IV ONE (10:30)
[2019-03-29 12:12] VITALS: BP_SYST 141
[2019-03-29 16:51] VITALS: BP_SYST 147
[2019-03-29 18:14] VITALS: BP_SYST 147
[2019-03-29] MEDS: ATORVASTATIN 10 MG TABLET PO SCH (18:48)
[2019-03-29] MEDS: MONTELUKAST 10 MG TABLET PO SCH (18:48)
[2019-03-29 20:40] VITALS: BP_SYST 149
[2019-03-29] MEDS: SIMETHICONE 80 MG TAB.CHEW PO SCH (21:12)
[2019-03-29] MEDS: HYDROcodone/ACETAMIN 5-325 MG TAB (NORCO/ VICODIN) PO PRN (21:12)
[2019-03-29] MEDS: metroNIDAZOLE 500 mg/NS 100 ML IV SCH (21:53)
[2019-03-30] MEDS: D5/0.45 NS 1,000 ML IV SCH ×3 (00:15→20:48)
[2019-03-30 00:48] VITALS: BP_SYST 157
[2019-03-30] MEDS: ALBUTEROL SULFATE 0.083% 2.5 MG/3 ML VIAL.NEB INH SCH ×4 (01:02→20:05)
[2019-03-30] MEDS: LEVOTHYROXINE SODIUM 0.05 MG TABLET PO SCH (06:24)
[2019-03-30] MEDS: metroNIDAZOLE 500 mg/NS 100 ML IV SCH ×4 (06:24→22:07)
[2019-03-30] MEDS: SIMETHICONE 80 MG TAB.CHEW PO SCH ×4 (06:24→20:48)
[2019-03-30 06:36] LABS: BASOPHILS # (AUTO) 0.1 K/uL (0.0-0.2); BASOPHILS % (AUTO) 0.5 % (0.0-2.0); EOSINOPHILS # (AUTO) 0.7 K/uL (0.0-0.4); EOSINOPHILS % (AUTO) 5.1 % (0.0-4.0); HEMATOCRIT 35.9 % (36-48); HEMOGLOBIN 12.6 g/dL (12.0-16.0); LYMPHOCYTES # (AUTO) 1.6 K/uL (1.0-5.5); LYMPHOCYTES % (AUTO) 11.9 % (20.5-51.5); MEAN CORPUSCULAR HEMOGLOBIN 32 pg (27-31); MEAN CORPUSCULAR HGB CONC 35 % (32-36); MEAN CORPUSCULAR VOLUME 92 fL (79.0-98.0); MONOCYTES # (AUTO) 1.2 K/uL (0.0-1.0); MONOCYTES % (AUTO) 9.1 % (1.7-9.3); NEUTROPHILS % (AUTO) 73.4 % (40.0-70.0); PLATELET COUNT (AUTO) 316 K/uL (130-430); RED BLOOD CELL COUNT(AUTO) 3.92 MIL/uL (4.2-6.2); RED CELL DISTRIBUTION WIDTH 13.4 % (9.0-15.0); WHITE BLOOD COUNT (AUTO) 13.6 K/uL (4.8-10.8)
[2019-03-30] MEDS: BUDESONIDE 0.5 MG/2 ML AMPUL.NEB INH SCH ×2 (07:35→20:20)
[2019-03-30 08:00] VITALS: BP_SYST 138
[2019-03-30 08:03] LABS: SODIUM SERUM 140 mmol/L (136-145)
[2019-03-30 08:05] LABS: ANION GAP 6 (5-15); CHLORIDE 109 mmol/L (98-107); CREATININE 0.57 mg/dL (0.55-1.30); GLUCOSE 101 mg/dL (70-99); POTASSIUM 2.8 mmol/L (3.5-5.1); UREA NITROGEN, BLOOD 2 mg/dL (8-21)
[2019-03-30 08:06] LABS: C-REACTIVE PROTEIN QUANT 0.2 mg/dL (0-0.5)
[2019-03-30 08:13] LABS: ERYTHROCYTE SEDIMENTATION RATE 20 MM/HR (0-20)
[2019-03-30] MEDS: FLOVENT INH SCH (09:00)
[2019-03-30] MEDS ORDERED: POTASSIUM CHLORIDE 40 MEQ in NS 250 ML IV ONE (09:00)
[2019-03-30] MEDS: FAMOTIDINE 20 MG TABLET PO SCH (10:26)
[2019-03-30] MEDS: ONDANSETRON HCL 4 MG/2 ML VIAL IVP PRN (10:26)
[2019-03-30] MEDS: FIDAXOMICIN 200 MG TABLET PO SCH ×2 (10:50→20:48)
[2019-03-30] MEDS: LOSARTAN POTASSIUM 25 MG TABLET PO SCH (10:51)
[2019-03-30] MEDS: LACTOBACILLUS RHAMNOSUS GG 1 CAP CAPSULE PO SCH ×2 (10:51→20:48)
[2019-03-30] MEDS: CHOLESTYRAMINE/SUCROSE 4 GM/PACKET PO SCH ×2 (10:51→20:48)
[2019-03-30] MEDS: SERTRALINE HCL 50 MG TABLET PO SCH (10:51)
[2019-03-30] MEDS ORDERED: FAMOTIDINE 20 MG TABLET PO ONE (11:10)
[2019-03-30] MEDS ORDERED: FAMOTIDINE 20 MG TABLET ONE (11:12)
[2019-03-30 12:00] VITALS: BP_SYST 138
[2019-03-30 16:35] VITALS: BP_SYST 156
[2019-03-30] MEDS: ATORVASTATIN 10 MG TABLET PO SCH (17:16)
[2019-03-30] MEDS: MONTELUKAST 10 MG TABLET PO SCH (17:16)
[2019-03-30] MEDS: HYDROcodone/ACETAMIN 5-325 MG TAB (NORCO/ VICODIN) PO PRN (19:09)
[2019-03-30 20:00] VITALS: BP_SYST 155
[2019-03-30] MEDS ORDERED: HYDROcodone/ACETAMIN 10-325 MG TAB PO PRN (21:15)
[2019-03-30] MEDS ORDERED: FAMOTIDINE 20 MG TABLET PO SCH (22:00)
[2019-03-30 23:26] VITALS: BP_SYST 155
[2019-03-31] MEDS: ALBUTEROL SULFATE 0.083% 2.5 MG/3 ML VIAL.NEB INH SCH ×4 (00:49→19:33)
[2019-03-31] MEDS: metroNIDAZOLE 500 mg/NS 100 ML IV SCH ×3 (05:22→21:07)
[2019-03-31] MEDS: D5/0.45 NS 1,000 ML IV SCH ×2 (05:22→16:15)
[2019-03-31] MEDS: LEVOTHYROXINE SODIUM 0.05 MG TABLET PO SCH (06:03)
[2019-03-31] MEDS: SIMETHICONE 80 MG TAB.CHEW PO SCH ×4 (06:03→21:03)
[2019-03-31 06:57] LABS: BASOPHILS # (AUTO) 0.1 K/uL (0.0-0.2); BASOPHILS % (AUTO) 1.3 % (0.0-2.0); EOSINOPHILS # (AUTO) 0.6 K/uL (0.0-0.4); HEMATOCRIT 33.9 % (36-48); HEMOGLOBIN 12.1 g/dL (12.0-16.0); LYMPHOCYTES # (AUTO) 1.4 K/uL (1.0-5.5); LYMPHOCYTES % (AUTO) 18.2 % (20.5-51.5); MEAN CORPUSCULAR HEMOGLOBIN 33 pg (27-31); MEAN CORPUSCULAR HGB CONC 36 % (32-36); MEAN CORPUSCULAR VOLUME 91 fL (79.0-98.0); MONOCYTES # (AUTO) 0.8 K/uL (0.0-1.0); NEUTROPHILS # (AUTO) 4.9 K/uL (1.8-7.7); NEUTROPHILS % (AUTO) 62.5 % (40.0-70.0); PLATELET COUNT (AUTO) 303 K/uL (130-430); RED BLOOD CELL COUNT(AUTO) 3.73 MIL/uL (4.2-6.2); RED CELL DISTRIBUTION WIDTH 13.5 % (9.0-15.0)
[2019-03-31 07:22] LABS: CALCIUM 7.9 mg/dL (8.4-11.0)
[2019-03-31] MEDS: BUDESONIDE 0.5 MG/2 ML AMPUL.NEB INH SCH ×2 (07:30→19:33)
[2019-03-31 07:31] LABS: WHITE BLOOD COUNT (AUTO) 7.9 K/uL (4.8-10.8)
[2019-03-31 08:00] VITALS: BP_SYST 161
[2019-03-31 08:17] LABS: POTASSIUM 2.8 mmol/L (3.5-5.1)
[2019-03-31 08:43] LABS: ANION GAP 7 (5-15); CHLORIDE 106 mmol/L (98-107); GLUCOSE 97 mg/dL (70-99); SODIUM SERUM 137 mmol/L (136-145)
[2019-03-31 08:44] LABS: ALANINE AMINOTRANSFERASE 19 U/L (12-78); ALBUMIN 1.9 g/dL (3.4-4.8); ASPARTATE AMINOTRANSFERASE 25 U/L (10-37); C-REACTIVE PROTEIN QUANT 1.6 mg/dL (0-0.5); CREATININE 0.55 mg/dL (0.55-1.30); TOTAL BILIRUBIN 0.4 mg/dL (0.0-1.0); UREA NITROGEN, BLOOD 3 mg/dL (8-21)
[2019-03-31] MEDS ORDERED: POTASSIUM CHLORIDE 40 MEQ in NS 250 ML IV ONE (08:45)
[2019-03-31] MEDS ORDERED: POTASSIUM CHLORIDE 20 MEQ TAB.PRT.SR PO ONE (08:45)
[2019-03-31 08:53] LABS: ERYTHROCYTE SEDIMENTATION RATE 31 MM/HR (0-20)
[2019-03-31] MEDS ORDERED: POTASSIUM CHLORIDE 20 MEQ TAB.PRT.SR PO SCH (09:00)
[2019-03-31] MEDS: FAMOTIDINE 20 MG TABLET PO SCH ×2 (09:02→21:02)
[2019-03-31] MEDS: LACTOBACILLUS RHAMNOSUS GG 1 CAP CAPSULE PO SCH ×2 (09:03→21:03)
[2019-03-31] MEDS: CHOLESTYRAMINE/SUCROSE 4 GM/PACKET PO SCH ×2 (09:03→21:00)
[2019-03-31] MEDS: SERTRALINE HCL 50 MG TABLET PO SCH (09:03)
[2019-03-31] MEDS ORDERED: MORPHINE 2 MG/ML INJ. SYRINGE IVP ONE (09:45)
[2019-03-31] MEDS: FIDAXOMICIN 200 MG TABLET PO SCH ×2 (09:58→21:00)
[2019-03-31] MEDS: LOSARTAN POTASSIUM 25 MG TABLET PO SCH (09:59)
[2019-03-31 12:00] VITALS: BP_SYST 161
[2019-03-31 17:04] VITALS: BP_SYST 162
[2019-03-31] MEDS: ATORVASTATIN 10 MG TABLET PO SCH (17:49)
[2019-03-31] MEDS: MONTELUKAST 10 MG TABLET PO SCH (17:49)
[2019-03-31 18:24] VITALS: BP_SYST 140
[2019-03-31 20:00] VITALS: BP_SYST 138
[2019-03-31] MEDS ORDERED: FAMOTIDINE 20 MG TABLET PO SCH (21:00)
[2019-03-31 23:27] VITALS: BP_SYST 157
[2019-04-01] MEDS: ALBUTEROL SULFATE 0.083% 2.5 MG/3 ML VIAL.NEB INH SCH ×2 (01:00→07:12)
[2019-04-01 05:52] LABS: ANION GAP 5 (5-15); CHLORIDE 105 mmol/L (98-107); CREATININE 0.47 mg/dL (0.55-1.30); GLUCOSE 90 mg/dL (70-99); POTASSIUM 3.6 mmol/L (3.5-5.1); SODIUM SERUM 135 mmol/L (136-145); UREA NITROGEN, BLOOD 2 mg/dL (8-21)
[2019-04-01] MEDS: metroNIDAZOLE 500 mg/NS 100 ML IV SCH (06:00)
[2019-04-01 06:13] LABS: BASOPHILS # (AUTO) 0.1 K/uL (0.0-0.2); EOSINOPHILS # (AUTO) 0.7 K/uL (0.0-0.4); EOSINOPHILS % (AUTO) 8.1 % (0.0-4.0); HEMATOCRIT 37.2 % (36-48); LYMPHOCYTES # (AUTO) 1.4 K/uL (1.0-5.5); MEAN CORPUSCULAR HEMOGLOBIN 32 pg (27-31); MEAN CORPUSCULAR HGB CONC 35 % (32-36); MEAN CORPUSCULAR VOLUME 92 fL (79.0-98.0); MONOCYTES # (AUTO) 0.7 K/uL (0.0-1.0); MONOCYTES % (AUTO) 8.4 % (1.7-9.3); NEUTROPHILS # (AUTO) 5.3 K/uL (1.8-7.7); NEUTROPHILS % (AUTO) 65.5 % (40.0-70.0); PLATELET COUNT (AUTO) 352 K/uL (130-430); RED BLOOD CELL COUNT(AUTO) 4.03 MIL/uL (4.2-6.2); RED CELL DISTRIBUTION WIDTH 13.8 % (9.0-15.0); WHITE BLOOD COUNT (AUTO) 8.1 K/uL (4.8-10.8)
[2019-04-01 06:22] LABS: CALCIUM 8.2 mg/dL (8.4-11.0)
[2019-04-01] MEDS: BUDESONIDE 0.5 MG/2 ML AMPUL.NEB INH SCH (07:12)
[2019-04-01] MEDS: LEVOTHYROXINE SODIUM 0.05 MG TABLET PO SCH (07:28)
[2019-04-01] MEDS: SIMETHICONE 80 MG TAB.CHEW PO SCH (07:28)
[2019-04-01 07:45] VITALS: BP_SYST 162
[2019-04-01 08:00] VITALS: BP_SYST 162
[2019-04-01] MEDS ORDERED: LACT1CAP72 PO (08:04)
[2019-04-01 08:06] LABS: ERYTHROCYTE SEDIMENTATION RATE 40 MM/HR (0-20)
== END 2019-04-01 08:30 | DRG 871 ==
LOC: SED 11:43 → SMU 14:02 → STU 03-29 15:03 → SMU 03-31 22:40
PROVIDERS: ADMIT Preventive Medicine Preventive Medicine/Occupational Environmental Medicine; ATTEND Preventive Medicine Preventive Medicine/Occupational Environmental Medicine
DX: A41.9 Sepsis, unspecified organism (principal); E43 Unspecified severe protein-calorie malnutrition; N17.0 Acute kidney failure with tubular necrosis; A04.72 Enterocolitis due to Clostridium difficile, not specified as recurrent; E87.1 Hypo-osmolality and hyponatremia; K51.90 Ulcerative colitis, unspecified, without complications; N39.0 Urinary tract infection, site not specified; D72.825 Bandemia; E03.9 Hypothyroidism, unspecified; E78.5 Hyperlipidemia, unspecified; E83.39 Other disorders of phosphorus metabolism; E83.41 Hypermagnesemia; E83.51 Hypocalcemia; E83.52 Hypercalcemia; E86.0 Dehydration; E87.6 Hypokalemia; R73.9 Hyperglycemia, unspecified; R33.9 Retention of urine, unspecified; I10 Essential (primary) hypertension; J01.90 Acute sinusitis, unspecified; J44.9 Chronic obstructive pulmonary disease, unspecified; K21.9 Gastro-esophageal reflux disease without esophagitis; N31.2 Flaccid neuropathic bladder, not elsewhere classified; N32.81 Overactive bladder; Z78.9 Other specified health status; Z87.01 Personal history of pneumonia (recurrent); Z90.710 Acquired absence of both cervix and uterus; Z68.28 Body mass index [BMI] 28.0-28.9, adult; Z91.012 Allergy to eggs; Z91.018 Allergy to other foods; Z79.899 Other long term (current) drug therapy
CPT/HCPCS: 36415; 71045; 74018; 76770; 80048; 80053; 81000-TC; 83605; 83735-TC; 84100-TC; 84443-TC; 84484; 85007; 85025; 85027; 85610-TC; 85651-TC; 85730-TC; 86140; 87040-TC; 87045-TC; 87046; 87086; 87177; 87230-TC; 93005; 93971; 94640; 94760; 96361; 96374; 96375; 97116-GP; 97530-GP; 99285; C1751; C9113; G0378; J1885; J2060; J2270; J2405; J3370; J3480; J3490; J7050; J7613; J7626

== ENCOUNTER 2020-01-26 08:43 | Outpatient (CLI) | payer OTHER, MEDICARE ==
[~2020-01-26 08:43] MED LIST: BUDE6HFA INH; Cholestyramine/Sucrose PO; FLO44 INH; LACT1CAP72 PO; LOSA25TA18 PO; LOVA40TA75 PO; MONT10TA25 PO; SERT50TA12 PO; SYN50 PO; TOLT4CAP PO; VANC250C11 PO
== END 2020-01-26 19:48 | disposition home or self-care (01) ==
LOC: SNM 08:43
PROVIDERS: ATTEND Orthopaedic Surgery
DX: T84.84XA Pain due to internal orthopedic prosthetic devices, implants and grafts, initial encounter (principal); Z96.651 Presence of right artificial knee joint
CPT/HCPCS: 78315; A9503

== ENCOUNTER 2023-04-20 09:37 | Day surgery (SDC) | payer OTHER, MEDICARE ==
[~2023-04-20] VITALS: Ht 165.1 cm; Wt 74.8 kg
[~2023-04-20 09:37] MED LIST changes: +MONT-40 PO; -MONT10TA25 PO; +SERT-436 PO; -SERT50TA12 PO
[2023-04-20] MEDS ORDERED: MEPERIDINE HCL/PF 25 MG/ML DISP.SYRIN IVP PRN (12:00)
[2023-04-20] MEDS ORDERED: LABETALOL 100 MG/ 20ML VIAL IVP PRN (12:00)
[2023-04-20] MEDS ORDERED: LR 1,000 ML IV SCH (12:00)
[2023-04-20] MEDS ORDERED: HYDROmorphone 1 MG/ML INJ. CARTRIDGE IVP PRN ×2 (12:00)
[2023-04-20] MEDS ORDERED: hydrALAZINE HCL 20 MG/ML VIAL IVP PRN (12:00)
[2023-04-20] MEDS ORDERED: ONDANSETRON HCL 4 MG/2 ML VIAL IVP PRN (12:00)
[2023-04-20] MEDS ORDERED: MIDAZOLAM HCL 2 MG/2 ML VIAL (VERSED) IVP PRN (12:00)
[2023-04-20] MEDS ORDERED: MUPIROCIN 2% TOPICAL OINTMENT 22 GM ONE (12:39)
[2023-04-20] MEDS ORDERED: LIDOCAINE/EPI 1% 1:100000 20 ML VIAL ONE (12:39)
[2023-04-20] MEDS ORDERED: LIDOCAINE 2%, 20 ML MDV ONE (12:39)
[2023-04-20] MEDS ORDERED: PROPOFOL 200MG/ 20ML VIAL (DIPRIVAN) IV ONE (12:39)
[2023-04-20] MEDS ORDERED: MIDAZOLAM HCL 5 MG/ML VIAL (VERSED) IV ONE (12:39)
[2023-04-20] MEDS ORDERED: fentaNYL CITRATE/PF 100 MCG/2 ML AMP ONE (12:39)
[2023-04-20] MEDS ORDERED: NS IRRIG SOLN 1000 ML IR ONE (12:39)
[2023-04-20] MEDS ORDERED: LR 1,000 ML IV.SOLN IV ONE (12:39)
[2023-04-20 13:17] VITALS: O2SAT 95
[2023-04-20 13:25] VITALS: BP_SYST 130; PULSE 63; RESP 16; TEMP 97.5
== END 2023-04-20 14:44 | disposition home or self-care (01) ==
LOC: SDS 09:37 → SMU 09:48 → SDS 14:44
PROVIDERS: ATTEND Otolaryngology
DX: R22.1 Localized swelling, mass and lump, neck (principal); D17.0 Benign lipomatous neoplasm of skin and subcutaneous tissue of head, face and neck; I10 Essential (primary) hypertension; G47.33 Obstructive sleep apnea (adult) (pediatric); E03.9 Hypothyroidism, unspecified; Z99.89 Dependence on other enabling machines and devices; E78.00 Pure hypercholesterolemia, unspecified; H81.13 Benign paroxysmal vertigo, bilateral; J32.0 Chronic maxillary sinusitis; J45.31 Mild persistent asthma with (acute) exacerbation; K21.9 Gastro-esophageal reflux disease without esophagitis; R49.0 Dysphonia; Z79.899 Other long term (current) drug therapy
CPT/HCPCS: 21555; 88304; J2001; J2250; J2704; J3010; J7120